=== PATIENT | female | born 1955 | race Two or more races ===

== ENCOUNTER 2022-02-17 18:40 | Inpatient (IN) | payer MEDICARE, MEDICAID ==
[~2022-02-17] VITALS: Ht 162.6 cm; Wt 111.8 kg
[2022-02-17 20:21] LABS: INR 1.04 (0.9-1.15)
[2022-02-17 21:14] LABS: Basophils # (auto) 0.1 10 ^3/uL (0-0.2); Basophils % (auto) 1.2 % (0.0-2.0); Eosinophils # (auto) 0.1 10 ^3/uL (0-0.8); Eosinophils % (auto) 1.8 % (0.0-7.0); Hematocrit 41.3 % (36.0-46.0); Hemoglobin 13.7 g/dL (12.2-16.2); Lymphocytes # (auto) 2.3 10 ^3/uL (0.4-5.4); Lymphocytes % (auto) 40.4 % (10.0-50.0); Mean Corpuscular Hgb Conc. 33.1 g/dL (32.0-36.0); Mean Corpuscular Volume 81.6 fL (80.0-100.0); Monocytes # (auto) 0.3 10 ^3/uL (0-1.3); Monocytes % (auto) 5.6 % (0.0-12.0); Neutrophils # (auto) 2.9 10 ^3/uL (1.6-8.6); Nucleated Red Blood Cells % 0.1 %; Red Blood Cells 5.07 10^6/uL (4.0-5.20); Red Cell Distribution Width 15.9 % (11.8-14.3); White Blood Cell 5.7 10^3/uL (4.4-10.8)
[2022-02-17 21:20] LABS: Albumin 3.9 g/dL (3.4-5.0); Calcium 8.7 mg/dL (8.5-10.1); Potassium 4.4 mmol/L (3.5-5.1)
[2022-02-17 21:25] LABS: BUN/Creatinine Ratio 18.3; Bilirubin, Total 0.6 mg/dL (0.2-1.0); Total Protein 7.2 g/dL (6.4-8.2)
[2022-02-17] MEDS ORDERED: HYDROcodone-ACET 5/325MG TAB PO PRN (22:30)
[2022-02-17] MEDS ORDERED: ONDANSETRON HCL 4 MG/2 ML VIAL IV PRN (22:30)
[2022-02-17] MEDS ORDERED: ACETAMINOPHEN 325 MG TAB PO PRN (22:30)
[2022-02-18 01:13] VITALS: BP 149/70
[2022-02-18] MEDS ORDERED: ASPITAB37 PO (01:53)
[2022-02-18] MEDS ORDERED: AMLO5CAP40 PO (01:53)
[2022-02-18] MEDS ORDERED: LEV50T PO (01:53)
[2022-02-18] MEDS: LEVOTHYROXINE SODIUM 50 MCG TAB PO SCH (05:29)
[2022-02-18 05:39] VITALS: BP 120/74
[2022-02-18 05:56] LABS: Basophils # (auto) 0 10 ^3/uL (0-0.2); Basophils % (auto) 0.4 % (0.0-2.0); Eosinophils # (auto) 0.1 10 ^3/uL (0-0.8); Eosinophils % (auto) 2.3 % (0.0-7.0); Hematocrit 38.7 % (36.0-46.0); Hemoglobin 12.8 g/dL (12.2-16.2); Lymphocytes # (auto) 2.1 10 ^3/uL (0.4-5.4); Lymphocytes % (auto) 46.8 % (10.0-50.0); Mean Corpuscular Hemoglobin 27.3 pg (28.0-32.0); Mean Corpuscular Hgb Conc. 33.1 g/dL (32.0-36.0); Mean Corpuscular Volume 82.3 fL (80.0-100.0); Monocytes # (auto) 0.4 10 ^3/uL (0-1.3); Monocytes % (auto) 8.4 % (0.0-12.0); Neutrophils # (auto) 1.9 10 ^3/uL (1.6-8.6); Neutrophils % (auto) 42.1 % (37.0-80.0); Nucleated Red Blood Cells % 0.3 %; Red Cell Distribution Width 15.9 % (11.8-14.3); White Blood Cell 4.5 10^3/uL (4.4-10.8)
[2022-02-18 06:14] LABS: Calcium 8.7 mg/dL (8.5-10.1); Potassium 4.1 mmol/L (3.5-5.1)
[2022-02-18 06:16] LABS: BUN/Creatinine Ratio 22.1
[2022-02-18 09:00] VITALS: BP 142/83
[2022-02-18] MEDS: PANTOPRAZOLE 40 MG TAB PO SCH (09:40)
[2022-02-18] MEDS: amLODIPine BESYLATE 5 MG TAB PO SCH (09:41)
[2022-02-18] MEDS ORDERED: ENOXAPARIN SOD 40 MG/0.4 ML SYRINGE SC SCH (10:00)
[2022-02-18 13:00] VITALS: BP 124/89
[2022-02-18] MEDS ORDERED: IOHEXOL 300 MG/ML 100ML BOTTLE IJ ONE ×2 (13:19→14:18)
[2022-02-18] MEDS ORDERED: DexAMETHasone SOD PHOS 10MG/1ML VIAL INJ IV ONE (14:00)
[2022-02-18 17:00] VITALS: BP 149/84
[2022-02-18 22:29] VITALS: BP 125/84
[2022-02-19 05:14] VITALS: BP 143/87
[2022-02-19 09:00] VITALS: BP 128/84
[2022-02-19] MEDS: LEVOTHYROXINE SODIUM 50 MCG TAB PO SCH (09:13)
[2022-02-19] MEDS: PANTOPRAZOLE 40 MG TAB PO SCH (09:14)
[2022-02-19] MEDS: amLODIPine BESYLATE 5 MG TAB PO SCH (09:14)
[2022-02-19] MEDS ORDERED: DexAMETHasone SOD PHOS 4 MG/1ML SDV INJ IV SCH (10:00)
[2022-02-19 13:00] VITALS: BP 132/72
[2022-02-19 17:00] VITALS: BP 125/79
[2022-02-19 22:00] VITALS: BP 153/92
[2022-02-19] MEDS: DexAMETHasone SOD PHOS 4 MG/1ML SDV INJ IV SCH (22:18)
[2022-02-20 05:00] VITALS: BP 121/76
[2022-02-20 09:00] VITALS: BP 150/76
[2022-02-20] MEDS: LEVOTHYROXINE SODIUM 50 MCG TAB PO SCH (09:39)
[2022-02-20] MEDS: DexAMETHasone SOD PHOS 4 MG/1ML SDV INJ IV SCH (09:39)
[2022-02-20] MEDS: PANTOPRAZOLE 40 MG TAB PO SCH (09:39)
[2022-02-20] MEDS: amLODIPine BESYLATE 5 MG TAB PO SCH (09:39)
[2022-02-20 17:00] VITALS: BP 139/86
[2022-02-20 17:05] VITALS: BP 132/78
== END 2022-02-20 19:05 | disposition home or self-care (01) | DRG 55 ==
LOC: ER 18:40 → OVERFLOW 22:19 → WEST WING 23:57
PROVIDERS: ADMIT Nurse Practitioner; ATTEND Internal Medicine
DX: C79.31 Secondary malignant neoplasm of brain (principal); Z68.41 Body mass index [BMI] 40.0-44.9, adult; C64.9 Malignant neoplasm of unspecified kidney, except renal pelvis; C78.00 Secondary malignant neoplasm of unspecified lung; E03.9 Hypothyroidism, unspecified; E66.01 Morbid (severe) obesity due to excess calories; Z20.822 Contact with and (suspected) exposure to COVID-19; I10 Essential (primary) hypertension; R53.81 Other malaise; Z90.49 Acquired absence of other specified parts of digestive tract; Z82.49 Family history of ischemic heart disease and other diseases of the circulatory system
CPT/HCPCS: 36415; 70450; 70553; 71045; 71260; 74177; 80048; 80053; 83880; 85025; 85610; 93005; 97116; 97163; 97530; 99291; G0378; J1100

== ENCOUNTER 2022-03-16 21:24 | Inpatient (IN) | payer MEDICARE, MEDICAID ==
[~2022-03-16] VITALS: Ht 160 cm; Wt 110.1 kg
[~2022-03-16 21:24] MED LIST: AMLO5CAP40 PO; ASPITAB37 PO; LEV50T PO
[2022-03-16 23:17] LABS: Albumin 2.9 g/dL (3.4-5.0); BUN/Creatinine Ratio 28.6; Calcium 8.2 mg/dL (8.5-10.1); Potassium 4.3 mmol/L (3.5-5.1)
[2022-03-16 23:19] LABS: Bilirubin, Total 0.4 mg/dL (0.2-1.0)
[2022-03-17] MEDS ORDERED: SODIUM CHLORIDE 0.9% 1,000 ML IV ONE (00:45)
[2022-03-17 01:15] LABS: Basophils # (auto) 0 10 ^3/uL (0-0.2); Basophils % (auto) 0.5 % (0.0-2.0); Eosinophils # (auto) 0.1 10 ^3/uL (0-0.8); Eosinophils % (auto) 1.8 % (0.0-7.0); Hematocrit 36.8 % (36.0-46.0); Hemoglobin 12.5 g/dL (12.2-16.2); Lymphocytes # (auto) 1.1 10 ^3/uL (0.4-5.4); Lymphocytes % (auto) 20.6 % (10.0-50.0); Mean Corpuscular Hemoglobin 27.3 pg (28.0-32.0); Mean Corpuscular Hgb Conc. 33.9 g/dL (32.0-36.0); Mean Corpuscular Volume 80.5 fL (80.0-100.0); Monocytes # (auto) 0.5 10 ^3/uL (0-1.3); Monocytes % (auto) 9.1 % (0.0-12.0); Neutrophils # (auto) 3.5 10 ^3/uL (1.6-8.6); Nucleated Red Blood Cells % 0.1 %; Red Blood Cells 4.57 10^6/uL (4.0-5.20); Red Cell Distribution Width 15.9 % (11.8-14.3); White Blood Cell 5.1 10^3/uL (4.4-10.8)
[2022-03-17] MEDS ORDERED: ACETAMINOPHEN 325 MG TAB PO PRN (03:15)
[2022-03-17] MEDS ORDERED: ONDANSETRON HCL 4 MG/2 ML VIAL IV PRN (03:15)
[2022-03-17] MEDS ORDERED: HYDROcodone-ACET 5/325MG TAB PO PRN (03:15)
[2022-03-17] MEDS ORDERED: DOCUSATE SOD 100 MG CAP PO PRN (03:15)
[2022-03-17] MEDS ORDERED: MORPHINE SULFATE INJECTION 2 MG/ML SYRG IV PRN (04:15)
[2022-03-17] MEDS ORDERED: NITROGLYCERIN 0.4 MG SL TAB SL PRN (04:15)
[2022-03-17] MEDS ORDERED: ENOX30IN5 SC (06:22)
[2022-03-17] MEDS ORDERED: BENA20TA14 PO (06:22)
[2022-03-17 06:29] VITALS: BP 125/76
[2022-03-17] MEDS: SODIUM CHLOR 0.9% PF (SALINE LOCK) 10ML VIAL/SYR IV SCH ×3 (06:38→21:30)
[2022-03-17] MEDS ORDERED: LEVOTHYROXINE SODIUM 50 MCG TAB PO SCH (07:00)
[2022-03-17 08:13] LABS: Basophils # (auto) 0 10 ^3/uL (0-0.2); Basophils % (auto) 0.5 % (0.0-2.0); Eosinophils # (auto) 0.1 10 ^3/uL (0-0.8); Eosinophils % (auto) 1.6 % (0.0-7.0); Hematocrit 37.2 % (36.0-46.0); Hemoglobin 12.4 g/dL (12.2-16.2); Lymphocytes # (auto) 1.1 10 ^3/uL (0.4-5.4); Lymphocytes % (auto) 22.1 % (10.0-50.0); Mean Corpuscular Hgb Conc. 33.5 g/dL (32.0-36.0); Mean Corpuscular Volume 80.5 fL (80.0-100.0); Monocytes # (auto) 0.5 10 ^3/uL (0-1.3); Monocytes % (auto) 11.3 % (0.0-12.0); Neutrophils # (auto) 3.1 10 ^3/uL (1.6-8.6); Neutrophils % (auto) 64.5 % (37.0-80.0); Nucleated Red Blood Cells % 0.2 %; Red Blood Cells 4.61 10^6/uL (4.0-5.20); Red Cell Distribution Width 15.9 % (11.8-14.3); White Blood Cell 4.7 10^3/uL (4.4-10.8)
[2022-03-17 08:30] LABS: Albumin 2.8 g/dL (3.4-5.0); Calcium 8.1 mg/dL (8.5-10.1); Potassium 4.2 mmol/L (3.5-5.1)
[2022-03-17 08:33] LABS: BUN/Creatinine Ratio 35.6; Bilirubin, Total 0.4 mg/dL (0.2-1.0); Total Protein 6.1 g/dL (6.4-8.2)
[2022-03-17 09:00] VITALS: BP 125/76
[2022-03-17] MEDS ORDERED: ASPirin 81 mg TAB PO SCH (10:00)
[2022-03-17 13:00] VITALS: BP 134/82
[2022-03-17] MEDS ORDERED: DexAMETHasone SOD PHOS 4 MG/1ML SDV INJ IV ONE (14:30)
[2022-03-17 17:00] VITALS: BP 147/90
[2022-03-17] MEDS: DexAMETHasone SOD PHOS 4 MG/1ML SDV INJ IV SCH (21:30)
[2022-03-17 22:00] VITALS: BP 126/64
[2022-03-18 05:00] VITALS: BP 140/87
[2022-03-18] MEDS: LEVOTHYROXINE SODIUM 100 MCG TAB PO SCH (06:11)
[2022-03-18] MEDS: SODIUM CHLOR 0.9% PF (SALINE LOCK) 10ML VIAL/SYR IV SCH ×3 (06:12→22:28)
[2022-03-18 07:58] LABS: Potassium 4.6 mmol/L (3.5-5.1); Sodium 138 mmol/L (136-145)
[2022-03-18 07:59] LABS: Anion Gap 6 (5-15); BUN/Creatinine Ratio 29.7; Blood Urea Nitrogen 19 mg/dL (7-18); Calcium 8.7 mg/dL (8.5-10.1); Carbon Dioxide 21 mmol/L (21-32); Chloride 111 mmol/L (98-107); GFR African American 119 mL/min; GFR Non-African American 98 mL/min; Glucose 189 mg/dL (74-106)
[2022-03-18 09:00] VITALS: BP 149/84
[2022-03-18] MEDS: DexAMETHasone SOD PHOS 4 MG/1ML SDV INJ IV SCH ×2 (10:02→22:28)
[2022-03-18] MEDS: ENOXAPARIN SOD 30 MG/0.3 ML SYRINGE SC SCH (10:03)
[2022-03-18] MEDS: FAMOTIDINE (10MG/ML) 2ML VL IV SCH ×2 (10:03→22:28)
[2022-03-18 13:00] VITALS: BP 151/80
[2022-03-18 17:00] VITALS: BP 174/83
[2022-03-18 22:00] VITALS: BP 148/87
[2022-03-19 05:00] VITALS: BP 156/92
[2022-03-19] MEDS: LEVOTHYROXINE SODIUM 100 MCG TAB PO SCH (06:52)
[2022-03-19] MEDS: SODIUM CHLOR 0.9% PF (SALINE LOCK) 10ML VIAL/SYR IV SCH ×3 (06:52→21:34)
[2022-03-19 09:00] VITALS: BP 140/76
[2022-03-19] MEDS: DexAMETHasone SOD PHOS 4 MG/1ML SDV INJ IV SCH (11:10)
[2022-03-19] MEDS: FAMOTIDINE (10MG/ML) 2ML VL IV SCH (11:10)
[2022-03-19] MEDS: ENOXAPARIN SOD 30 MG/0.3 ML SYRINGE SC SCH (11:11)
[2022-03-19] MEDS ORDERED: MIDAZOLAM DRIP 50 mg/50mL 50 ML IV ONE (12:32)
[2022-03-19 13:00] VITALS: BP 136/67
[2022-03-19 17:00] VITALS: BP 141/90
[2022-03-19] MEDS: DexAMETHasone 4 MG TAB PO SCH (21:34)
[2022-03-19 22:00] VITALS: BP 134/93
[2022-03-20 05:00] VITALS: BP 148/87
[2022-03-20] MEDS: SODIUM CHLOR 0.9% PF (SALINE LOCK) 10ML VIAL/SYR IV SCH ×3 (06:22→21:46)
[2022-03-20] MEDS: LEVOTHYROXINE SODIUM 100 MCG TAB PO SCH (06:23)
[2022-03-20 09:00] VITALS: BP 159/96
[2022-03-20] MEDS: FAMOTIDINE 20 MG TAB PO SCH (09:49)
[2022-03-20] MEDS: ENOXAPARIN SOD 30 MG/0.3 ML SYRINGE SC SCH (09:49)
[2022-03-20] MEDS: DexAMETHasone 4 MG TAB PO SCH ×2 (09:49→21:46)
[2022-03-20 13:00] VITALS: BP 136/72
[2022-03-20 17:00] VITALS: BP 142/73
[2022-03-20 22:00] VITALS: BP 148/85
[2022-03-21 05:00] VITALS: BP 148/77
[2022-03-21] MEDS: SODIUM CHLOR 0.9% PF (SALINE LOCK) 10ML VIAL/SYR IV SCH ×2 (05:37→14:00)
[2022-03-21] MEDS: LEVOTHYROXINE SODIUM 100 MCG TAB PO SCH (05:38)
[2022-03-21 09:00] VITALS: BP 133/61
[2022-03-21] MEDS: ENOXAPARIN SOD 30 MG/0.3 ML SYRINGE SC SCH (10:00)
[2022-03-21] MEDS: DexAMETHasone 4 MG TAB PO SCH (10:00)
[2022-03-21] MEDS: FAMOTIDINE 20 MG TAB PO SCH (10:00)
[2022-03-21] MEDS ORDERED: LORazepam 0.5 MG TAB PO ONE (16:30)
[2022-03-21 17:43] VITALS: BP 142/86
== END 2022-03-21 18:18 | disposition hospice, home (50) | DRG 686 ==
LOC: ER 21:24 → EDBD 21:24 → OVERFLOW 03-17 04:14 → WEST WING 03-17 06:00
PROVIDERS: ADMIT Nurse Practitioner Family; ATTEND Internal Medicine
DX: C64.9 Malignant neoplasm of unspecified kidney, except renal pelvis (principal); G93.6 Cerebral edema; C79.31 Secondary malignant neoplasm of brain; G81.94 Hemiplegia, unspecified affecting left nondominant side; Z68.41 Body mass index [BMI] 40.0-44.9, adult; E03.9 Hypothyroidism, unspecified; E66.01 Morbid (severe) obesity due to excess calories; Z20.822 Contact with and (suspected) exposure to COVID-19; I10 Essential (primary) hypertension; Z85.528 Personal history of other malignant neoplasm of kidney; Z90.5 Acquired absence of kidney; Z51.5 Encounter for palliative care; Z82.49 Family history of ischemic heart disease and other diseases of the circulatory system
CPT/HCPCS: 36415; 70450; 80048; 80053; 83036; 83605; 83690; 83880; 84443; 84484; 85025; 87081; 96360; G0378; J1100; J2250; J3490